=== PATIENT | female | born 1980 | race Caucasian/White ===

== ENCOUNTER 2016-10-13 22:36 | Emergency (ER) | payer OTHER ==
[2016-10-13 22:47] VITALS: BP 131/68; PULSE 73; TEMP 98.2; BMI 30.8
--- NOTE | 2016-10-14 01:10 | PDOC ---
History of Present Illness - General History Source: Patient Exam Limitations: No Limitations - History of Present Illness Initial Comments: 10/14/16 01:17 The patient is a 36 year old female, with a significant past medical history of , who presents to the emergency department complaining of back pain since yesterday morning. The patient reports the pain is localized to the left flank and radiates to the abdomen(RUQ/LUQ). The patient reports associated chills, but denies any fever. She denies any dysuria, hematuria, frequency, or urgency. Patient denies any recent trauma. She reports her last normal bowel movement was yesterday, but denies any nausea, vomiting, diarrhea, or constipation. Patient reports she has not taken anything for the pain. She denies any recent travel or sick contacts. Allergies: NKDA Past Surgical History: Appendectomy Social History: Non smoker. No ETOH or recreational drug use. <Jarad Gresham - Last Filed: 10/14/16 01:17> <Amy Martinez - Last Filed: 10/14/16 04:20> - General Chief Complaint: Back Pain Stated Complaint: BACK PAIN Time Seen by Provider: 10/14/16 00:38 Past History <Jarad Gresham - Last Filed: 10/14/16 01:17> - Past Medical History Other medical history: denies - Psycho/Social/Smoking Cessation Hx Suicidal Ideation: No Smoking History: Never smoked <Amy Martinez - Last Filed: 10/14/16 04:20> - Past Medical History Allergies/Adverse Reactions: Allergies Allergy/AdvReac Type Severity Reaction Status Date / Time No Known Allergies Allergy Verified 10/13/16 22:47 Home Medications: Ambulatory Orders NK [No Known Home Medication] 10/14/16 Review of Systems - Review of Systems Able to Perform ROS?: Yes Comments:: 10/14/16 01:17 GENERAL/CONSTITUTIONAL: Yes: +chills. No fever. No weakness. HEAD, EYES, EARS, NOSE AND THROAT: No change in vision. No ear pain or discharge. No sore throat. CARDIOVASCULAR: No chest pain or shortness of breath. RESPIRATORY: No cough, wheezing, or hemoptysis. GASTROINTESTINAL: Yes: +RUQ/LUQ pain. No nausea, vomiting, diarrhea or constipation. GENITOURINARY: Yes: +left flank pain. No dysuria, frequency, or change in urination. MUSCULOSKELETAL: No joint or muscle swelling or pain. No neck or back pain. SKIN: No rash NEUROLOGIC: No headache, vertigo, loss of consciousness, or change in strength/ sensation. ENDOCRINE: No increased thirst. No abnormal weight change. HEMATOLOGIC/LYMPHATIC: No anemia, easy bleeding, or history of blood clots. ALLERGIC/IMMUNOLOGIC: No hives or skin allergy. <Jarad Gresham - Last Filed: 10/14/16 01:17> *Physical Exam - Vital Signs Last Vital Signs Temp Pulse Resp BP Pulse Ox 98.2 F 73 18 131/68 99 10/13/16 22:44 10/13/16 22:44 10/13/16 22:44 10/13/16 22:44 10/13/16 22:44 - Physical Exam Comments: 10/14/16 01:18 GENERAL: Awake, alert, and fully oriented, in no acute distress HEAD: No signs of trauma EYES: PERRLA, EOMI, sclera anicteric, conjunctiva clear ENT: Auricles normal inspection, hearing grossly normal, nares patent, oropharynx clear without exudates. Moist mucosa NECK: Normal ROM, supple, no lymphadenopathy, JVD, or masses LUNGS: Breath sounds equal, clear to auscultation bilaterally. No wheezes, and no crackles HEART: Regular rate and rhythm, normal S1 and S2, no murmurs, rubs or gallops BACK: +Left CVA tenderness. ABDOMEN: +Tenderness to palpation to the RUQ/LUQ. Soft, normoactive bowel sounds. No guarding, no rebound. No masses EXTREMITIES: Normal range of motion, no edema. No clubbing or cyanosis. No cords, erythema, or tenderness NEUROLOGICAL: Cranial nerves II through XII grossly intact. Normal speech, normal gait SKIN: Warm, Dry, normal turgor, no rashes or lesions noted. <Jarad Gresham - Last Filed: 10/14/16 01:17> - Vital Signs Last Vital Signs Temp Pulse Resp BP Pulse Ox 98.2 F 73 18 131/68 99 10/13/16 22:44 10/13/16 22:44 10/13/16 22:44 10/13/16 22:44 10/13/16 22:44 <Amy Martinez - Last Filed: 10/14/16 04:20> ED Treatment Course - LABORATORY CBC & Chemistry Diagram: 10/14/16 01:35 10/14/16 01:35 <Amy Mratinez - Last Filed: 10/14/16 04:20> Medical Decision Making - Medical Decision Making 10/14/16 02:[address] Dickerson. Presented with complaints of pain in mid-back, noted to have mild upper abdominal tenderness as well as L costovertebral angle. Labs show microcytic anemia, no priors for comparison. Patient is asymptomatic with the anemia. Awaiting non-contrast CT of the abdomen to r/o kidney stone. F/u CT , reassess. <Amy Martinez - Last Filed: 10/14/16 04:20> *DC/Admit/Observation/Transfer - Attestations Scribe Attestion: 10/14/16 01:19 Documentation prepared by Jarad Gresham, acting as medical assisting instructor for Amy Martinez MD. <Jarad Gresham - Last Filed: 10/14/16 01:17> <Amy Martinez - Last Filed: 10/14/16 04:20> Diagnosis at time of Disposition: Back pain Qualifiers: Back pain location: back pain in unspecified location Chronicity: acute Back pain laterality: unspecified Qualified Code(s): M54.9 - Dorsalgia, unspecified
[2016-10-14] MEDS ORDERED: SODIUM CHLORIDE 1,000 ML IV STA (01:14)
[2016-10-14] MEDS ORDERED: ACETAMINOPHEN 1000 MG/100 ML VIAL (NON FORMULARY) IVPB ONE (01:14)
[2016-10-14] MEDS ORDERED: ACETAMINOPHEN INJECTION 100 ML IVPB ONE (01:18)
[2016-10-14 01:46] LABS: BASOPHIL 0.8 % (0-2.0); EOSINOPHIL 1.8 % (0-4.5); MCH 21.1 pg (25.7-33.7); MCHC 31.1 g/dl (32.0-36.0); MEAN CELL VOLUME 67.9 fl (80-96); MEAN PLT VOLUME 7.3 fl (7.5-11.1); NEUTROPHILS 39.8 % (42.8-82.8); PLATELET COUNT 396 K/MM3 (134-434); RDW 19.8 % (11.6-15.6); WHITE BLOOD COUNT 9.4 K/mm3 (4.0-10.0)
[2016-10-14 02:11] LABS: ALBUMIN 3.3 g/dl (3.4-5.0); ANION GAP 8 (8-16); BILIRUBIN,TOTAL 0.4 mg/dL (0.2-1.0); CALCIUM 8.3 mg/dL (8.5-10.1); CO2 23 mmol/L (21-32); CREATININE 0.4 mg/dL (0.55-1.02); GLUCOSE,RANDOM 115 mg/dL (74-106); SGPT/ALT 37 U/L (12-78); TOT PROT 7.1 g/dl (6.4-8.2)
[2016-10-14 02:12] LABS: ALK PHOS 142 U/L (45-117)
[2016-10-14 02:14] LABS: SGOT/AST 60 U/L (15-37)
[2016-10-14 04:25] LABS: URINE APPEARANCE CLEAR; URINE BILIRUBIN NEGATIVE (NEGATIVE); URINE BLOOD NEGATIVE (NEGATIVE); URINE COLOR LT. YELLOW; URINE GLUCOSE (UA) NEGATIVE (NEGATIVE); URINE KETONE NEGATIVE (NEGATIVE); URINE LEUK ESTERASE NEGATIVE (NEGATIVE); URINE PROTEIN NEGATIVE (NEGATIVE); URINE UROBILINOGEN 0.2 mg/dL (0.2-1.0)
[2016-10-14 04:27] LABS: URINE NITRITE POSITIVE (NEGATIVE)
[2016-10-14 04:39] LABS: URINE BACTERIA RARE /hpf (NONE SEEN); URINE MUCUS RARE; URINE RBC 1 /hpf (0-3); URINE WBC 6 /hpf (3-5)
[2016-10-14 04:49] LABS: ANISOCYTOSIS 1+; HYPOCHROMIA 2+; MICROCYTOSIS 1+
--- NOTE | 2016-10-14 06:14 | PDOC ---
*Physical Exam - Vital Signs Last Vital Signs Temp Pulse Resp BP Pulse Ox 98.2 F 73 18 131/68 99 10/13/16 22:44 10/13/16 22:44 10/13/16 22:44 10/13/16 22:44 10/13/16 22:44 ED Treatment Course - LABORATORY CBC & Chemistry Diagram: 10/14/16 01:35 10/14/16 01:35 - ADDITIONAL ORDERS Additional order review: Laboratory Results 10/14/16 10/14/16 10/14/16 01:35 01:35 01:10 Sodium 138 Potassium 4.6 Chloride 107 Carbon Dioxide 23 Anion Gap 8 BUN 10 Creatinine 0.4 L Creat Clearance w eGFR > 60 Random Glucose 115 H Calcium 8.3 L Total Bilirubin 0.4 AST 60 H ALT 37 Alkaline Phosphatase 142 H Total Protein 7.1 Albumin 3.3 L Lipase 133 Serum , Qual Negative Urine Color Lt. yellow Urine Appearance Clear Urine pH 6.0 Urine Protein Negative Urine Glucose (UA) Negative Urine Ketones Negative Urine Blood Negative Urine Nitrite Positive Urine Bilirubin Negative Urine Urobilinogen 0.2 Ur Leukocyte Esterase Negative Urine HCG, Qual Negative 10/14/16 01:35 RBC 3.90 MCV 67.9 L MCHC 31.1 L RDW 19.8 H MPV 7.3 L Neutrophils % 39.8 L Lymphocytes % 49.6 H Monocytes % 8.0 Eosinophils % 1.8 Basophils % 0.8 - Medications Given in the ED: ED Medications Discontinued Medications Generic Name Dose Route Start Last Admin Trade Name Freq PRN Reason Stop Dose Admin Acetaminophen 1,000 mg 10/14/16 01:14 10/14/16 01:42 Ofirmev Injection - IVPB 10/14/16 01:15 1,000 mg ONCE ONE Administration Sodium Chloride 1,000 mls @ 1,000 mls/hr 10/14/16 01:14 10/14/16 01:42 Normal Saline - IV 10/14/16 02:13 1,000 mls/hr ASDIR STA Administration Medical Decision Making - Medical Decision Making 10/14/16 06:12 I received signout on the patient. SHe has microcytic amenia. We have nothing for comparison. COmes with flank pain. CT scan is negative. Pt is stable for discharge home. 10/14/16 06:18 Pt states that she had a hemorrhagic bleed at [facility] and was told that she is anemic. She states that she goes to her PMD and she gets her blood tested. Pt will have labs report copy given to her so that she can show it to her PMD. *DC/Admit/Observation/Transfer Diagnosis at time of Disposition: Back pain Qualifiers: Back pain location: back pain in unspecified location Chronicity: acute Back pain laterality: unspecified Qualified Code(s): M54.9 - Dorsalgia, unspecified - Discharge Dispostion Disposition: HOME Condition at time of disposition: Stable Admit: No - Patient Instructions Printed Discharge Instructions: Low Back Pain
== END 2016-10-14 06:31 | disposition home or self-care (01) ==
LOC: JER 22:36
PROC: 3E033NZ Introduction of Analgesics, Hypnotics, Sedatives into Peripheral Vein, Percutaneous Approach (ICD-10-PCS; principal; 2016-10-13)
DX: M54.89 Other dorsalgia (principal)
CPT/HCPCS: 36415; 74176; 80053; 81003; 81015; 83690; 84703; 85025; 99282-25